=== PATIENT | male | born 1960 ===

== ENCOUNTER → 2023-12-26 06:29 | Day surgery (SDC) | payer OTHER, SELFPAY | LOC: GI 06:29 | PROVIDERS: ATTENDING PHYSICIAN Internal Medicine Gastroenterology; FAMILY PHYSICIAN Family Medicine | DX: R19.4 Change in bowel habit (principal); K57.30 Diverticulosis of large intestine without perforation or abscess without bleeding; D12.2 Benign neoplasm of ascending colon; K52.9 Noninfective gastroenteritis and colitis, unspecified | CPT/HCPCS: 45385; 45380; 88305 ==

== ENCOUNTER 2024-12-04 14:55 | Inpatient (IN) | payer OTHER, SELFPAY ==
[2024-12-04] VITALS (8 sets, daily range): BP systolic 118–143; BP diastolic 54–76; BMI 27.4; BMI 27.5
[2024-12-04 07:51] LABS: Hematocrit 39.7 % (39.0-52.0); Hemoglobin 13.7 g/dL (13.0-18.0); Mean Corp Hgb Conc. 34.5 g/dL (33.0-37.0); Mean Corpuscular Volume 90.0 fL (80.0-94.0); Nucleated Red Blood Cells % 0 % (-); Platelet Count 164 10^3/uL (130-400); Red Cell Dist. Width 12.3 % (11.5-14.5)
[2024-12-04 08:06] LABS: ALT (SGPT) 24 U/L (0-50); AST (SGOT) 25 U/L (17-59); Albumin 4.5 g/dl (3.5-5.0); Blood Urea Nitrogen 21 mg/dl (9-20); Calcium 9.3 mg/dl (8.4-10.2); Carbon Dioxide 24 mmol/L (22-30); Chloride 106 mmol/L (98-107); Glucose 98 mg/dl (70-99); Lipase 59 U/L (23-300); Potassium 3.9 mmol/L (3.5-5.1); Sodium 137 mmol/L (135-145); Total Protein 7.8 g/dl (6.3-8.2); eGFR > 60.00
[2024-12-04 08:16] LABS: Alkaline Phosphatase 48 U/L (38-126)
--- NOTE | 2024-12-04 11:47 | ED.GENMED ---
History of Present Illness
General
Chief Complaint: Abdominal Pain
Source: patient
Exam Limitations: none
Time Seen by Provider: 12/04/24 11:05
Nursing documentation reviewed up to this point in time: agreed with
History of Present Illness
History of Present Illness:
pt is a 64 y/o M
h/o HTN
here with LLQ pain and diarrhea x 2 days
4-5 episodes watery stool daily, nonbloody
pain waxes and wanes, nonradiating
chills, low grade temp and headache
nausea, dec po intake
no h/o stones or divertic
previous appe
Past History
Past History
ED Past Medical History: HTN
ED Past Surgical History: Appendectomy
Social History
Tobacco: Non-smoker
Alcohol: None
Drug: None
Personal:
Review of Systems
Review of Systems
Allergies reviewed?: Yes
All Other Systems: Not applicable
Phy Exam
Physical Exam
Physical Exam:
GENERAL: Alert , in no apparent distress
EYE: pupils equal and reactive
NECK: Supple
ENT: o/p clr, mmm.
CARDIAC: Regular rate and rhythm .
LUNGS: Clear breath sounds bilaterally, no acute respiratory distress, no wheezes/rales/rhonchi
ABDOMEN: Soft, mild left lower quad tendenress, no r/g, no cvat, normal bowel sounds
NEUROLOGICAL: Alert and oriented, no focal neuro deficits
SKIN: Warm and dry, skin intact.
MUSCULOSKELETAL: No edema, well perfused.
PSYCH: Normal and appropriate interaction.
Course
Orders/Labs/Results
Orders:
Orders
12/04/24 07:41
Complete Blood Count/With Diff Urgent
Comprehensive Metabolic Panel Urgent
Lipase Urgent
12/04/24 11:35
CT Abd/Pel (IV only)-[facility] only Urgent
Comment:
Reason For Exam: llq pain, diarrhea, fever
0.9% Sodium Chloride 1000 ml [Nss] 1,000 ml IV BOLUS
Ketorolac [Toradol] 30 mg IV NOW STA
12/04/24 11:46
Ondansetron Injectable [Zofran] 4 mg IV NOW STA
12/04/24 12:18
Urinalysis Reflex To Culture Urgent
Date Specimen was Collected: 12/04/24
Time Specimen was Collected: 12:17
Urine Microscopic Reflex Cult Urgent
12/04/24 13:24
C DIFF [C difficile Antigen & Toxins] Urgent
EDUARDO Source: Feces/Stool
Specimen Description:
Stool Culture Urgent
EDUARDO Source: Feces/Stool
Specimen Description:
12/04/24 13:25
0.9% Sodium Chloride 1000 ml [Nss] 1,000 ml IV BOLUS
12/04/24 14:00
Norovirus by PCR Routine
EDUARDO Source: Feces/Stool
Specimen Description:
12/04/24 14:18
Admit/Transfer Patient As Directed
Co-Sign Provider:
Level of Care: Inpatient admission
Assign to:: Medical/Surgical
Physician / Group: htay
Diagnosis: acute dirrhea illness
Reason for Hospitalization: acute dirrhea illness
Expected length of stay greater than two midnights?: Yes
ELOS- Estimated Length of Stay in days: 3
I certify the patient meets the requirements for IP care: Yes
12/04/24 14:19
Code Status As Directed
Resuscitation Status: Full Code
Abnormal Lab Results
12/04/24 12/04/24
07:41 12:18
WBC 11.7 H 10^3/uL
(4.8-10.8)
RBC 4.41 L 10^6/uL
(4.70-6.10)
MCH 31.1 H pg
(27.0-31.0)
Absolute Neuts (auto) 10.0 H 10^3/uL
(1.4-6.5)
Absolute Lymphs (auto) 0.7 L 10^3/uL
(1.2-3.4)
Absolute Monos (auto) 0.9 H 10^3/uL
(0.1-0.6)
Neutrophils % 85.7 H %
(42.2-75.2)
Lymphocytes % 6.0 L %
(20.5-51.1)
BUN 21 H mg/dl
(9-20)
Urine Ketones 3+ A
(Negative)
Ur Occult Blood Reflex 1+ A
(Negative)
Urine Albumin (Reflex) 2+ A
(Neg - Trace)
12/04/24 07:41
12/04/24 07:41
Vital Signs
Initial and Last Documented VS:
Initial Vital Signs
Temp Pulse Resp BP Pulse Ox
37.4 C 84 16 142/70 97
12/04/24 07:32 12/04/24 07:32 12/04/24 07:32 12/04/24 07:32 12/04/24 07:32
Last Documented Vital Signs
Temp Pulse Resp BP Pulse Ox
37.4 C 71 16 122/72 95
12/04/24 07:32 12/04/24 12:32 12/04/24 12:32 12/04/24 13:02 12/04/24 13:03
MDM/Problems Addressed
Differential Diagnosis Includes:
colitis, diveritculitis, infectious diarrhea, sepsis, norovirus
MDM/Problems Addressed:
64 y/o M
htn
here with llq pain, diarrhea and fever
temp 99.7 here, chills
mild LLQ tendenress
wbc 11.7
stool pending
ct shows diffuse colitis
symptoms ipmproved with fluids and toradol but no appetite, feels anxious about going home, doesn't feel like can eat
given diffuse coiits, this is likely infectious and unlikey ishemic
will admit
ivf, gi consut, npo, abx likely
*Pulse Oximetry
SaO2: 97
Oxygen Mode of Delivery: Room air
Patient hypoxic: no (95)
*Critical Care Note
Total Time (30-74mins, 75-104mins- exclusive of procedures): Not Applicable
ED Attending Note
-
Portions of this chart may have been created with voice recognition software.� Occasional wrong word or��sound alike� substitutions may have occurred due to the inherent limitations of voice recognition software.
Discharge Plan
Departure
Patient Disposition: Admit
Date of Disposition: 12/04/24
Time of Disposition: 13:24
Admit to: Med/Surg
Presentation/result/management discussed w/ accepting MD/DO: Hospitalist
Condition: Fair
Covid-19: Not Applicable
Discharge Problem:
Colitis
Prescriptions:
No Action
losartan 50 mg Tablet
50 mg PO DAILY
loperamide 2 mg Tablet
2 mg PO BIDPRN PRN (Reason: DAIRRHEA)
ibuprofen [Advil] 200 mg Tablet
400 mg PO DAILYPRN PRN (Reason: MILD PAIN)
cholecalciferol (vitamin D3) [Vitamin D3] 25 mcg (1,000 unit) Tablet
25 mcg PO DAILY
Visbiome 112.5 billion cell Capsule
1 cap PO DAILY
Referrals:
Maxwell Gonsales DO [Family Provider, Physical Medicine and Rehab]
Interventions
Interventions:
*Risk Screen - Suicide Last Done: 12/04/24 07:32
*General Assessment Last Done: 12/04/24 12:33
*Neglect/Abuse Screening Last Done: 12/04/24 07:32
*ED COVID-19 Vaccine History Last Done: 12/04/24 12:33
Discharge Date and Time
Print Language: ARABIC
[2024-12-04] MEDS: NSS 1000 IV ×3 (12:21→19:03)
[2024-12-04] MEDS: ZOFRAN 4 MG IV ×2 (12:21→19:03)
[2024-12-04] MEDS: TORADOL 30 MG IV (12:22)
[2024-12-04 12:24] LABS: Urine Character Clear (Clear)
[2024-12-04 12:31] LABS: Urine Squamous Cell 0-2 /LPF (Few)
[2024-12-04 12:32] LABS: Urine Red Blood Cell 0-2 /HPF (0-2); Urine White Cell 0-2 /HPF (0-5)
--- NOTE | 2024-12-04 14:08 | HPS.HSE ---
Addendum entered and electronically signed by Bon Doll MD 12/04/24 23:17:
12/04/24 15:11 C. difficile [facility] Antigen & Toxins - Final
Feces/Stool Toxigenic C.difficile Positive
12/04/24 15:11 - Final
Feces/Stool Positive for Norovirus GII
- Stop IV Aztreonam and IV Metronidazole
- start PO Vancomycin 250mg qid
- add Visbiome
Original Note:
Family Physician
-
Family Physician: Maxwell Gonsales
Chief Complaint
-
abdominal pain and dirrhea
History of Present Illness
HPI
64M HX HTN sen at ER:
- pw LLQ pain and diarrhea x 2 days
- 4-5 episodes noj bloody watery stool daily
- non radiating pain waxes and wanes, nonradiating
- chills with low grade temp and headache
- nausea, decreased po intake
- no HX stones or diverticulitis
Medical History
Past Medical History
Past Medical History: Reports HTN
Past Surgical History: Reports Appendectomy
Social History
Tobacco: Non-smoker
Alcohol: None
Family History
Family History: Not pertinent
Allergies / Home Medications
Allergies reflects when Allergies were last updated in [facility].
Home Medications with original date entered in [facility]
Allergy/Medication List:
Allergies
Allergy/AdvReac Type Severity Reaction Status Date / Time
Penicillins Allergy Mild Rash Verified 12/04/24 07:31
Home Medications
Lactobac no.2-Bifidobac no.1-S. thermo 112.5 billion cell capsule (Visbiome) 1 cap PO DAILY 12/04/24
cholecalciferol (vitamin D3) 25 mcg (1,000 unit) tablet (Vitamin D3) 25 mcg PO DAILY 12/04/24
ibuprofen 200 mg tablet (Advil) 400 mg PO DAILYPRN PRN MILD PAIN 12/04/24
loperamide 2 mg tablet 2 mg PO BIDPRN PRN DAIRRHEA 12/04/24
losartan 50 mg tablet 50 mg PO DAILY 12/04/24
Review of Systems
-
Constitutional: Reports No Symptoms
EENT: Reports No Symptoms
Respiratory: Reports No Symptoms
Cardiac: Reports No Symptoms
Abdomen/GI: Reports See HPI
: Reports No Symptoms
Musculoskeletal: Reports No Symptoms
Skin: Reports No Symptoms
Neurological: Reports No Symptoms
Endocrine: Reports No Symptoms
Hematologic/Lymphatic: Reports No Symptoms
Psych: Reports No Symptoms
Physical Exam
Vital Signs
Vital Signs
Temp Pulse Resp BP Pulse Ox
99.3 F 71 16 122/72 95
12/04/24 07:32 12/04/24 12:32 12/04/24 12:32 12/04/24 13:02 12/04/24 13:03
Physical Exam
General: Well Developed, Well Nourished and No Apparent Distress
HEENT: NormoCephalic, Moist mucous membranes and Atraumatic
Respiratory: Clear
Cardiac: S1/S2 and Regular Rhythm; No Murmur or Rub
GI: Tender
Rectal: Deferred by Provider
Musculoskeletal: No Clubbing, No Cyanosis and No Edema
Skin: No Rash
Neuro: Nonfocal/grossly intact
Laboratory Results
-
12/04/24 07:41
12/04/24 07:41
Laboratory Results
Total Bilirubin 0.9 mg/dl (0.2-1.3) 12/04/24 07:41
AST 25 U/L (17-59) 12/04/24 07:41
ALT 24 U/L (0-50) 12/04/24 07:41
Alkaline Phosphatase 48 U/L (38-126) 12/04/24 07:41
Lipase 59 U/L (23-300) 12/04/24 07:41
Data Reviewed
-
CT Scan: Report Reviewed by me
Lab Data: Labs Reviewed by me
Impression/Plan
-
Relevant Data
WCC 11.7
Cr 1.0
eGFR > 60
Nl LFTs
NEG UA
CT Abd/Pel (IV only)-[facility] only
- Highly suggestive of diffuse colitis. Infectious colitis would be a leading consideration.
Main differential consideration of inflammatory bowel disease.
- No evidence for bowel obstruction or free intraperitoneal air.
Patient is status post appendectomy.
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
NO PRIOR hospitalist admission:
ASSESSMENT & PLAN
Pending Rx reconciliation
Acute diarrhea with low grade fever , abdominal paina and anorexia
DDX: Infective vs IBD
- CT AP suggest diffuse colitis; Infectious vs IBD
- No vomiting
- Normotensive s/p 2L NS at ER
- stool Cx, Stool C Diff, Noro virus
- stop Loperamide and Ibuprofen PRN
- Empiric IV Aztreonam & IV Metronidazole ( HX Allergy to PCN during childhood)
Bn HTN
- Hold Losartan for now
DVT Px: SCD
Full Code:
IP MS
--- NOTE | 2024-12-04 17:24 | CM ---
CM reviewed chart and met with pt and his bedside in ED. Lives with in 2 story home, 2-3 CORINE, first floor half BA, second floor BR/Full BA. Independent in ADLs, personal care and ambulation at baseline. No DME.
No hx VN/SNF.
PCP: Maxwell Gonsales
Pharmacy: [facility]
CM will continue to follow for discharge planning.
[2024-12-04] MEDS: DILAUDID 0.25 MG IV ×2 (19:02→23:23)
[2024-12-04] MEDS: FIRVANQ 250 MG PO (23:20)
[2024-12-05] MEDS: NSS 1000 IV ×2 (05:03→15:55)
[2024-12-05] MEDS: FIRVANQ 250 MG PO ×3 (05:03→18:32)
[2024-12-05] MEDS: DILAUDID 0.25 MG IV ×3 (05:34→15:56)
[2024-12-05] MEDS: ZOFRAN 4 MG IV ×2 (05:34→15:56)
[2024-12-05 07:20] VITALS: BP 130/63
--- NOTE | 2024-12-05 07:29 | W.PN.HOSP.TC ---
Today's Communication/Plan
-
Advance diet as tolerated
Assessment / Plan
Assessment / Plan
Assessment
This is a 64 y/o male with pmhx of essential hypertension who presented to the ED on 12/04/2024 with non radiating, waxing-waning left lower quadrant pain and diarrhea for the last two days accompanied by chills, nausea, headache, and decreased
appetite, who was found to have both C. diff and Norovirus infections.
Plan
Diffuse Colitis with concurrent C. Diff and Norovirus infections
-Stool cultures positive for C. Diff and norovirus
-Continue contact precautions
-Continue IV maintenance fluids until patient can tolerate foods
-STOP loperamide and ibuprofen
-Continue PO Vancomycin
-Continue PRN Zofran for nausea, PRN hydromorphone for Pain
-Will advance diet to low residue as tolerated
Essential Hypertension
-Explained to the patient that he should not take his own medications while hospitalized and that medications will be supplied to him to take
-HOLD Losartan until tomorrow, at which time patient can restart
Anticipated Discharge: 24 - 48 hours
Subjective/Interval History
-
Date of Service: December 05, 2024
Patient was doing well when I arrived today. He states when he woke up this morning he felt nauseous and had left sided abdominal pain unchanged from when he was in the ED yesterday. He received zofran and pain medication around 6AM which helped
relieve both symptoms, and denied any current nausea or pain while I was in the room. He does still report nonbloody diarrhea and states he has no appetite even though he is without nausea. He denies any chills, chest pain, shortness of breath,
dizziness, weakness or fatigue. He denies any prior episodes of nausea and abdominal pain similar to this.
He did ask about the possibility of being discharged from the hospital today, as he states he does not like being in the hospital. He also asked about his blood pressure medications, as he brought his Losartan with him to the hospital and was
wondering if he should take it this morning. He denied any past medical conditions aside from Hypertension.
Objective Data
-
Labs:
Laboratory Results
12/05/24
07:22
WBC Pending
Hgb Pending
Hct Pending
Plt Count Pending
Sodium Pending
Potassium Pending
Chloride Pending
Carbon Dioxide Pending
BUN Pending
Creatinine Pending
Glucose Pending
Calcium Pending
Total Bilirubin Pending
AST Pending
ALT Pending
Alkaline Phosphatase Pending
Vital Signs:
Vital Signs
Temp Pulse Resp BP Pulse Ox
98.8 F 60 16 120/61 95
12/04/24 23:00 12/04/24 23:00 12/04/24 23:00 12/04/24 23:00 12/04/24 23:55
I&O
12/04/24 12/05/24 12/06/24
06:59 06:59 06:59
Intake Total 2160 / 2160
Balance 2160 / 2160
Review of Systems
-
History Source: Patient
Constitutional: Reports No Appetite; Denies Fever, Fatigue, Chills or Weakness
Respiratory: Denies Cough, Trouble Breathing or Wheezing
Cardiac: Denies Chest Pain
Abdomen/GI: Reports Abdominal Pain (None present currently, present this AM, unchanged from admission), Nausea (None present currently, present this AM, unchanged from admission) and Diarrhea (Nonbloody); Denies Vomiting or Black Stools
Musculoskeletal: Denies Joint Pain or Muscle Pain
Neuro: Denies Dizzy, Headache, Weakness, Numbness or Lightheadedness
Physical Exam
-
General: Well Developed, Well Nourished, No Apparent Distress and Comfortable
HEENT: Normocephalic and Atraumatic
Respiratory: Clear to Auscultation
Cardiac: Regular Rhythm and S1/S2
GI: Soft, Nontender, Nondistended and Other (Hyperactive bowel sounds)
Skin: Warm and Dry
Neuro: Awake, Alert and Oriented
Psych: Calm
[2024-12-05 08:05] LABS: Hematocrit 34.0 % (39.0-52.0); Hemoglobin 11.8 g/dL (13.0-18.0); Mean Corp Hgb Conc. 34.7 g/dL (33.0-37.0); Mean Corpuscular Volume 89.9 fL (80.0-94.0); Platelet Count 145 10^3/uL (130-400); Red Cell Dist. Width 12.5 % (11.5-14.5)
[2024-12-05 08:47] LABS: Total Protein 6.0 g/dl (6.3-8.2)
[2024-12-05 08:48] LABS: ALT (SGPT) 15 U/L (0-50); AST (SGOT) 20 U/L (17-59); Albumin 3.3 g/dl (3.5-5.0); Alkaline Phosphatase 39 U/L (38-126); Blood Urea Nitrogen 18 mg/dl (9-20); Calcium 8.3 mg/dl (8.4-10.2); Carbon Dioxide 19 mmol/L (22-30); Chloride 110 mmol/L (98-107); Estimated Creatinine Clearance 86 ml/min; Glucose 68 mg/dl (70-99); Potassium 3.5 mmol/L (3.5-5.1); Sodium 135 mmol/L (135-145); eGFR > 60.00
[2024-12-05 15:25] VITALS: BP 118/54
[2024-12-05] MEDS: HEPARIN 5000 UNITS SC (15:56)
[2024-12-05 23:05] VITALS: BP 115/62
[2024-12-06] MEDS: HEPARIN 5000 UNITS SC (00:01)
[2024-12-06] MEDS: NSS 1000 IV (00:08)
[2024-12-06] MEDS: DILAUDID 0.25 MG IV (00:09)
[2024-12-06] MEDS: FIRVANQ 250 MG PO ×4 (06:02→17:11)
[2024-12-06 07:00] VITALS: BP 119/68
--- NOTE | 2024-12-06 07:04 | W.PN.HOSP.TC ---
Today's Communication/Plan
-
Continue to advance diet as tolerated
Assessment / Plan
Assessment / Plan
Assessment
This is a 64 y/o male with pmhx of essential hypertension who presented to the ED on 12/04/2024 with non radiating, waxing-waning left lower quadrant pain and diarrhea for the last two days accompanied by chills, nausea, headache, and decreased
appetite, who was found to have both C. diff and Norovirus infections.
Plan
Diffuse Colitis with concurrent C. Diff and Norovirus infections
-Stool cultures positive for C. Diff and norovirus
-Continue contact precautions
-Continue PO Vancomycin
-Continue PRN Zofran for nausea, PRN hydromorphone for Pain
-Will advance diet to low residue as tolerated
-Patient can be discharged as soon as he is able to tolerate food and liquid enough to maintain hydration without supplemental IV fluids
Essential Hypertension
-Patient's blood pressure has remained normal without home medication. Can restart losartan if his blood pressure increases
Anticipated Discharge: Within 24 hours
Subjective/Interval History
-
Date of Service: December 06, 2024
Patient was awake and sitting comfortably when I arrived. He reports his nausea and abdominal pain has improved. He last took Zofran yesterday and was able to tolerate some small foods yesterday evening, and last took medication for pain at
midnight. He does report 3 bowel movements so far today, which are nonbloody and with a 'fluffy' appearance, which is an improvement from yesterday when his bowel movements were entirely liquid. He also reports he is not able to urinate without also
having a bowel movement yet, even when he does not feel an urge to defecate. He would like to go home as soon as possible, but also is concerned about how his pain would be managed at home.
Objective Data
-
Labs:
Laboratory Results
12/06/24
06:00
WBC Pending
Hgb Pending
Hct Pending
Plt Count Pending
Sodium Pending
Potassium Pending
Chloride Pending
Carbon Dioxide Pending
BUN Pending
Creatinine Pending
Glucose Pending
Calcium Pending
Vital Signs:
Vital Signs
Temp Pulse Resp BP Pulse Ox
98.8 F 51 16 115/62 95
12/05/24 23:05 12/05/24 23:05 12/05/24 23:05 12/05/24 23:05 12/05/24 23:05
I&O
12/05/24 12/06/24 12/07/24
06:59 06:59 06:59
Intake Total 2160 / 2160 2780 / 2780
Output Total
Balance 2160 / 2160 2774 / 2774
Review of Systems
-
History Source: Patient
Constitutional: Reports No Appetite; Denies Fever, Chills or Weakness
Respiratory: Denies Trouble Breathing or Wheezing
Cardiac: Denies Chest Pain
Abdomen/GI: Reports Abdominal Pain (Improved) and Diarrhea (Improved); Denies Nausea, Vomiting, Bloody Stools or Black Stools
Neuro: Denies Dizzy, Headache, Weakness or Numbness
Physical Exam
-
General: Well Developed, Well Nourished, No Apparent Distress and Comfortable
HEENT: Normocephalic
Respiratory: Clear to Auscultation
Cardiac: Regular Rhythm and S1/S2
GI: Soft, Nontender, Nondistended and Other (Hyperactive bowel sounds)
Skin: Warm and Dry
Neuro: Awake, Alert and Oriented
Psych: Calm
[2024-12-06 08:26] LABS: Hematocrit 34.7 % (39.0-52.0); Hemoglobin 12.1 g/dL (13.0-18.0); Mean Corp Hgb Conc. 34.9 g/dL (33.0-37.0); Mean Corpuscular Volume 89.2 fL (80.0-94.0); Platelet Count 165 10^3/uL (130-400); Red Cell Dist. Width 12.6 % (11.5-14.5)
[2024-12-06] MEDS: HEPARIN SC ×2 (08:55→15:17)
[2024-12-06 09:07] LABS: Blood Urea Nitrogen 12 mg/dl (9-20); Calcium 8.6 mg/dl (8.4-10.2); Carbon Dioxide 22 mmol/L (22-30); Chloride 112 mmol/L (98-107); Estimated Creatinine Clearance 86 ml/min; Glucose 86 mg/dl (70-99); Potassium 3.9 mmol/L (3.5-5.1); Sodium 139 mmol/L (135-145); eGFR > 60.00
[2024-12-06] MEDS: NSS IV (15:17)
[2024-12-06 15:27] VITALS: BP 109/61
--- NOTE | 2024-12-06 19:20 | W.DCSUMMARY ---
Documented by User: Effie TuckerDO, Resident 12/06/24 19:23
Discharge Summary
Discharge Data
Date of Admission: 12/04/24
Date of Discharge: 12/06/24
-
Pending Results: No
Hospital Course
This is a 64 y/o male with pmhx of essential hypertension who presented to the ED on 12/04/2024 with non radiating, waxing-waning left lower quadrant pain and diarrhea for the last two days. He had 4-5 episodes of non bloody diarrhea per day. This was
also accompanied by chills, nausea, headache, and decreased appetite.
CT Abdomen/Pelvis with IV was highly suggestive of diffuse colitis without evidence of bowel obstruction or free intraperitoneal air. His stool cultures were positive for both norovirus and C. diff, and so he was admitted to the hospital and started
on IV vancomycin.
He continued to have diarrhea with nausea and pain throughout the night. On 12/05/2024 he reported decreased nausea and pain, and was able to tolerate some food for dinner. By 12/06/2024 his nausea and pain had decreased to the point where he no longer
required zofran or pain medication, his stools became more solid, and he was able to fully tolerate food. He was found to be medically stable and was discharged to home with a prescription for 250mg vancomycin to take every 6 hours for an additional
8 days (For a 10 day total course of antibiotics), and instructions to follow up with his PCP in less than 1 week. He was also sent home with a short course of oxycodone as needed for pain, and zofran as needed for nausea.
Discharge Plan
-
Patient Disposition: Home (Routine Discharge)
Discharge Diagnosis/Procedures: Diffuse Colitis due to C. diff and Norovirus infections, Essential Hypertension
Condition: Good
Diet: No restrictions
Activity: No restrictions
Driving Restrictions: As prior to admission
Bathing Restrictions: None
Activity Restrictions/Additional Instructions:
If you develop worsening abdomen pain or distention, fever >100.4 �F, or worsening nausea/vomiting with inability to keep food or drink down then return to the ED or call your family doctor for further guidance
You have risk of spreading infection until 24-48 hours from when your symptoms completely resolved. You should utilize precautions with family members until 24 or 48 hours after your symptoms are completely resolved
You should follow-up with your family doctor within 1 week of discharge from the hospital. If you need a new family doctor, referral to the family medicine residency practice has been provided below
Instructions: C. difficile infection
Referrals:
Marco Antonio Ceron MD, Resident [Family Practice Resident Year3, General] - in one week
Referral Note: If you need a PCP
Maxwell Gonsales, DO [Family Provider, Physical Medicine and Rehab] - in less than 1 week
Additional Discharge Medication Instructions: Continue vancomycin 250 mg tablets 4 times daily (every 6 hours) through the end of 12/14/2024
Use Zofran as needed for nausea
Use oxycodone as needed for breakthrough abdomen pain that does not respond to Tylenol
Prescriptions:
New
vancomycin 250 mg capsule
250 mg PO QID 8 Days Qty: 32 0RF
oxycodone 10 mg tablet
10 mg PO Q8H PRN (Reason: Pain) 3 Days Qty: 10 0RF
ondansetron 4 mg tablet,disintegrating
4 mg PO Q8H PRN (Reason: nausea and vomiting) 5 Days Qty: 20 0RF
Continued
cholecalciferol (vitamin D3) [Vitamin D3] 25 mcg (1,000 unit) Tablet
25 mcg PO DAILY
Visbiome 112.5 billion cell Capsule
1 cap PO DAILY
Held
losartan 50 mg Tablet
50 mg PO DAILY
Hold Instructions: Until you see your family doctor in office Recommend monitoring home blood pressures once daily until seen in office by family doctor, write values down and booklet and take with you to the appointment
loperamide 2 mg Tablet
2 mg PO BIDPRN PRN (Reason: DAIRRHEA)
Hold Instructions: Until you finish your antibiotic course and talk to your family doctor
Discontinued
ibuprofen [Advil] 200 mg Tablet
400 mg PO DAILYPRN PRN (Reason: MILD PAIN)
Discharge Orders:
Discharge Patient (As Directed); Ordered 12/06/24
Ordered By: Carlos Quiles
Discharge Date and Time
Discharge Date/Time: 12/06/24 18:41
Print Language: MARTINIQUAIS

Documented by User: Carlos Quiles DO 12/07/24 12:26
Discharge Summary
Discharge Data
Date of Admission: 12/04/24
Date of Discharge: 12/06/24
Total time spent discharging patient (in min): 36
Discharge Plan
-
Patient Disposition: Home (Routine Discharge)
Discharge Diagnosis/Procedures: Diffuse Colitis due to C. diff and Norovirus infections, Essential Hypertension
Condition: Good
Diet: No restrictions
Activity: No restrictions
Driving Restrictions: As prior to admission
Bathing Restrictions: None
Activity Restrictions/Additional Instructions:
If you develop worsening abdomen pain or distention, fever >100.4 �F, or worsening nausea/vomiting with inability to keep food or drink down then return to the ED or call your family doctor for further guidance
You have risk of spreading infection until 24-48 hours from when your symptoms completely resolved. You should utilize precautions with family members until 24 or 48 hours after your symptoms are completely resolved
You should follow-up with your family doctor within 1 week of discharge from the hospital. If you need a new family doctor, referral to the family medicine residency practice has been provided below
Instructions: C. difficile infection
Referrals:
Marco Antonio Ceron MD, Resident [Family Practice Resident Year3, General] - in one week
Referral Note: If you need a PCP
Maxwell Gonsales, DO [Family Provider, Physical Medicine and Rehab] - in less than 1 week
Additional Discharge Medication Instructions: Continue vancomycin 250 mg tablets 4 times daily (every 6 hours) through the end of 12/14/2024
Use Zofran as needed for nausea
Use oxycodone as needed for breakthrough abdomen pain that does not respond to Tylenol
Prescriptions:
New
vancomycin 250 mg capsule
250 mg PO QID 8 Days Qty: 32 0RF
oxycodone 10 mg tablet
10 mg PO Q8H PRN (Reason: Pain) 3 Days Qty: 10 0RF
ondansetron 4 mg tablet,disintegrating
4 mg PO Q8H PRN (Reason: nausea and vomiting) 5 Days Qty: 20 0RF
Continued
cholecalciferol (vitamin D3) [Vitamin D3] 25 mcg (1,000 unit) Tablet
25 mcg PO DAILY
Visbiome 112.5 billion cell Capsule
1 cap PO DAILY
Held
losartan 50 mg Tablet
50 mg PO DAILY
Hold Instructions: Until you see your family doctor in office Recommend monitoring home blood pressures once daily until seen in office by family doctor, write values down and booklet and take with you to the appointment
loperamide 2 mg Tablet
2 mg PO BIDPRN PRN (Reason: DAIRRHEA)
Hold Instructions: Until you finish your antibiotic course and talk to your family doctor
Discontinued
ibuprofen [Advil] 200 mg Tablet
400 mg PO DAILYPRN PRN (Reason: MILD PAIN)
Discharge Orders:
Discharge Patient (As Directed); Ordered 12/06/24
Ordered By: Carlos Quiles
Discharge Date and Time
Discharge Date/Time: 12/06/24 18:41
Print Language: MARTINIQUAIS
== END 2024-12-06 18:41 | disposition home or self-care (01) | DRG 392 ==
LOC: 4 WEST ACU 14:55
PROVIDERS: Physician Assistant; ADMITTING PHYSICIAN Internal Medicine; ATTENDING PHYSICIAN Internal Medicine; EMERGENCY PHYSICIAN Emergency Medicine; FAMILY PHYSICIAN Family Medicine
DX: A08.11 Acute gastroenteropathy due to Norwalk agent (principal); A04.72 Enterocolitis due to Clostridium difficile, not specified as recurrent; I10 Essential (primary) hypertension; Z90.49 Acquired absence of other specified parts of digestive tract; Z88.0 Allergy status to penicillin
CPT/HCPCS: 74177; 80048; 80053; 81003; 81015; 83690; 85025; 85027; 87045; 87046; 87077; 87324; 87427; 87449; 87798; 96361; 96374; 96375; 99284; Q9967